=== PATIENT | female | born 1955 | race Hispanic/Latino ===

== ENCOUNTER → 2020-11-13 | Outpatient (CLI) | payer MEDICARE | END | disposition home or self-care (01) | LOC: RAH 13:18 | PROVIDERS: ATTEND Family Medicine | DX: M47.22 Other spondylosis with radiculopathy, cervical region (principal); M48.03 Spinal stenosis, cervicothoracic region; M47.816 Spondylosis without myelopathy or radiculopathy, lumbar region; M48.07 Spinal stenosis, lumbosacral region | CPT/HCPCS: 72141; 72148 ==

== ENCOUNTER → 2023-12-13 | Outpatient (CLI) | payer MEDICARE ==
[~2023-12-13] MED LIST: GADOTERATE MEGLUMINE 10 MMOL/20 ML VIAL IV ONE
== END | disposition home or self-care (01) ==
LOC: RAH 13:17
PROVIDERS: ATTEND Family Medicine
DX: M47.26 Other spondylosis with radiculopathy, lumbar region (principal); M51.16 Intervertebral disc disorders with radiculopathy, lumbar region; M51.37 Other intervertebral disc degeneration, lumbosacral region; M47.817 Spondylosis without myelopathy or radiculopathy, lumbosacral region; M48.07 Spinal stenosis, lumbosacral region; M47.815 Spondylosis without myelopathy or radiculopathy, thoracolumbar region; M54.50 Low back pain, unspecified
CPT/HCPCS: 72158; A9575